=== PATIENT | female | born 1995 ===

== ENCOUNTER → 2019-04-27 | Outpatient (CLI) | payer MEDICAID ==
--- NOTE | 2019-04-27 17:08 | Diagnostic Imaging Report ---
INDICATION: Anatomic survey. TECHNIQUE: Multiple real-time grayscale images were obtained over the gravid uterus. COMPARISON: None FINDINGS: There is a single live intrauterine gestation in breech presentation. The cervix measures 4.2 cm with no evidence of funneling or endocervical fluid. The stomach is seen. The heart rate measures 143 BPM. The cord insertion is seen. The profile is seen. The upper extremities are seen. Bilateral feet are seen. Two umbilical arteries are demonstrated. The placenta is anterior with no evidence of previa. The lateral ventricles are normal in size. The cerebellum appears normal. The cisterna magna is normal in size. The spine is not well seen due to lie. A four-chamber heart is seen. The kidneys are seen. The maternal adnexa are not seen. The amniotic fluid appears subjectively normal. Biometrical measurements are as follows: Biparietal 4.54 cm, age 19 weeks 6 days. Head circumference 18.16 cm, age 20 weeks 4 days. Abdominal circumference 14.41 cm, age 19 weeks 6 days. Femur length 3.24 cm, age 20 weeks 1 days. Sonographic estimate age: 20 weeks 1 days. Sonographic estimated date of delivery: 09/13/2019. Estimated Weight: 324 gm (+/- 47 gm). LMP percentile: 17%. heart rate: 143 beats per minute. number: 1 of 1. IMPRESSION: 1. Single live intrauterine gestation measuring 20 weeks and 1 day, which is within range of the clinical dates of 20 weeks and 4 days. heart rate is normal. 2. Anatomic survey as given above. The spine is not well seen. Dictated by: Dictated on workstation # [id number]
== END ==
LOC: RAD 15:12
PROVIDERS: ATTEND Obstetrics & Gynecology
DX: Z36.89 Encounter for other specified antenatal screening (principal); Z3A.20 20 weeks gestation of pregnancy
CPT/HCPCS: 76805

== ENCOUNTER → 2019-05-23 | Outpatient (CLI) | payer MEDICAID ==
--- NOTE | 2019-05-23 18:18 | Diagnostic Imaging Report ---
INDICATION: Previous exam had limited anatomical survey. TECHNIQUE: Multiple real-time grayscale images were obtained over the gravid uterus. FINDINGS: Previously, the spine was suboptimally visualized and shown to be unremarkable. No pathological finding at the anatomical survey. The [place] viable IUP is in cephalic position. Amniotic fluid volume within normal limits. The placenta is anterior. There is no abruption or previa. Heart rate is 134 bpm. IMPRESSION: Follow-up exam shows normal appearance of the spine. No pathological finding identified. Fetus measuring 24 weeks 2 days. Biometrical measurements are as follows: Biparietal cm, age weeks days. Head circumference cm, age weeks days. Abdominal circumference cm, age weeks days. Femur length cm, age weeks days. Sonographic estimate age: weeks days. Sonographic estimated date of delivery: . Estimated Weight: gm (+/- gm). LMP percentile: %. heart rate: beats per minute. number: of . Dictated by: Dictated on workstation # [id number]
== END ==
LOC: RAD 13:05
PROVIDERS: ATTEND Obstetrics & Gynecology
DX: O35.1XX0 Maternal care for (suspected) chromosomal abnormality in fetus, not applicable or unspecified (principal); Z3A.23 23 weeks gestation of pregnancy; Z04.89 Encounter for examination and observation for other specified reasons
CPT/HCPCS: 76816

== ENCOUNTER → 2019-07-23 | Outpatient (CLI) | payer MEDICAID | LOC: RAD 15:12 | PROVIDERS: ATTEND Nurse Practitioner Women's Health | DX: Z34.90 Encounter for supervision of normal pregnancy, unspecified, unspecified trimester (principal); Z3A.00 Weeks of gestation of pregnancy not specified ==

== ENCOUNTER 2019-08-26 18:37 | Outpatient (CLI) | payer MEDICAID ==
[~2019-08-26] VITALS: Ht 165.1 cm; Wt 106.0 kg
--- NOTE | 2019-08-26 18:35 | NUR ---
Arrived to unit via wheelchair per s.o. with c/o contractions. wt obtained and to room 317. Gowned, unable to void at this time. To bed and oriented to room, call light and surroundings. bed controls explained. plan of care reviewed
[2019-08-26 18:48] VITALS: BP 124/77
[2019-08-26] MEDS ORDERED: VALA500T4 PO (18:51)
[2019-08-26] MEDS ORDERED: PREN-37 PO (18:51)
[2019-08-26 19:40] VITALS: BP 124/77
--- NOTE | 2019-08-26 20:24 | NUR ---
DR ANDRADE NOTIFIED OF PT ARRIVAL AND C/O'S. ORDER TO HAVE PT WALK IN HALLS AND RECHECK CERVIX IN 1 HOUR. PT INFORMED OF PLAN OF CARE.
--- NOTE | 2019-08-26 20:35 | NUR ---
PT AND S/O AMB IN HALLS.
--- NOTE | 2019-08-26 21:41 | NUR ---
DR ANDRADE NOTIFIED OF PT CONDITION. WILL D/C TO HOME.
[2019-08-26 21:50] VITALS: BP 125/73
[2019-08-26] MEDS ORDERED: ACETAMINOPHEN 500 MG TAB (TYLENOL) ONE (22:14)
[2019-08-26] MEDS ORDERED: ACETAMINOPHEN 500 MG TAB (TYLENOL) PO ONE (22:29)
--- NOTE | 2019-08-26 22:30 | NUR ---
PT D/C TO HOME ACCOMPANIED BY S/O.
--- NOTE | 2019-08-27 08:20 | Physician Query-Final Dx ---
ISIDRO MCGOVERN 08/27/19 0820: Clinic Account Progress/Dx Physician Query: Please give diagnosis Please include # weeks gestation Date of Service Aug 26, 2019 at 18:37 JOHN ANDRADE DO 08/27/19 2150: Clinic Account Progress/Dx Physician Query: Please give diagnosis DIAGNOSIS: Diagnosis Intrauterine at 37 6/7 weeks 2. Pelvic Pain 3. Irregular Contractions ISIDRO MCGOVERN Aug 27, 2019 08:20 JOHN ANDRADE DO Aug 27, 2019 21:50
== END 2019-08-26 22:30 | disposition home or self-care (01) ==
LOC: LDRP 18:37 → WSo 18:37
PROVIDERS: ATTEND Obstetrics & Gynecology
DX: O62.9 Abnormality of forces of labor, unspecified (principal); Z3A.37 37 weeks gestation of pregnancy
CPT/HCPCS: 99214

== ENCOUNTER 2019-08-27 20:46 | Inpatient (IN) | payer MEDICAID ==
[~2019-08-27] VITALS: Ht 165.1 cm; Wt 106.0 kg
[2019-08-27] VITALS (20 sets, daily range): BP systolic 107–133; BP diastolic 58–82
--- NOTE | 2019-08-27 20:45 | NUR ---
REYNALDO SCOTT presented to unit via W/C from ED, accompanied by SO, with c/o INPT LABOR. REYNALDO SCOTT weighed, gowned, voided, and to bed. EFHM and TOCO applied, VS taken. REYNALDO SCOTT oriented to bed controls, call light, TV, heat, and A/C controls.
[~2019-08-27 20:46] MED LIST: PREN-37 PO; VALA500T4 PO
--- NOTE | 2019-08-27 20:48 | NUR ---
Called Dr. Mendoza to see if she would like to take labor, no answer.
--- NOTE | 2019-08-27 20:49 | NUR ---
After SVE of 7 cm and pt co of urge to push Dr Seals called and enroute to unit.
--- NOTE | 2019-08-27 20:50 | NUR ---
Pt made inpt.
[2019-08-27] MEDS ORDERED: D5 LR IV SOLUTION 1,000 ML IV SCH (21:05)
[2019-08-27 21:14] LABS: BASOPHILS % (AUTO) 0 % (0-10); EOSINOPHILS % (AUTO) 0 % (0-10); HEMATOCRIT 40 % (35-52); HEMOGLOBIN 13.4 G/DL (11.5-16.0); LYMPHOCYTES # (AUTO) 1.6 X 10^3 (1.0-4.0); LYMPHOCYTES % (AUTO) 8 % (12-44); MEAN CORPUSCULAR HEMOGLOBIN 29 PG (25-34); MEAN CORPUSCULAR HGB CONC 34 G/DL (32-36); MEAN CORPUSCULAR VOLUME 88 FL (80-99); MEAN PLATELET VOLUME 9.4 FL (7.4-10.4); MONOCYTES # (AUTO) 0.7 X 10^3 (0.0-1.0); MONOCYTES % (AUTO) 4 % (0-12); NEUTROPHILS # (AUTO) 16.6 X 10^3 (1.8-7.8); NEUTROPHILS % (AUTO) 88 % (42-75); PLATELET COUNT 443 10^3/uL (130-400); RED CELL DISTRIBUTION WIDTH 14.3 % (10.0-14.5); WHITE BLOOD COUNT 18.9 10^3/uL (4.3-11.0)
[2019-08-27] MEDS ORDERED: MINERAL OIL CONCENTRATE 99.9% 15 ML UDC TOP PRN (21:15)
[2019-08-27] MEDS ORDERED: SUFENTA 0.6MCG/ML BUPIVA 0.125 100 ML ONE (21:18)
[2019-08-27] MEDS ORDERED: fentaNYL INJECTION 100 MCG/2 ML AMP ONE (21:36)
[2019-08-27] MEDS ORDERED: LIDOCAINE PF 2% 5 ML (XYLOCAINE) VIAL ONE (21:36)
[2019-08-27] MEDS ORDERED: BUPIVACAINE 0.25% 30 ML (SENSORCAINE) VIAL ONE (21:36)
[2019-08-27] MEDS ORDERED: CATHETER FLUSH 10 ML SYR IV SCH (22:00)
--- NOTE | 2019-08-27 22:01 | History & Physical-OB/GYN ---
History of Present Illness History of Present Illness Reason for visit/HPI Ms. Bach, 24 year old female, A1 at 38 weeks gestation presents to Labor & Delivery with increasingly worsening contractions and pressure Date of Admission Aug 27, 2019 at 20:50 Date Seen by a Provider: Aug 27, 2019 Time Seen by a Provider: 21:30 I consulted on this patient on 08/27/19 21:56 Attending Physician Darrell Allen DO Admitting Physician Ophelia Mendoza DO Consult Allergies and Home Medications Allergies Coded Allergies: No Known Drug Allergies (Unverified , 08/26/19) Home Medications Vit/Iron Fumarate/FA 1 Each Tablet, 1 EACH PO DAILY, (Reported) Valacyclovir HCl 500 Mg Tablet, 500 MG PO DAILY, (Reported) Patient Home Medication List Home Medication List Reviewed: Yes Past Rdntcka-Fhwcmy-Lrjshu Hx Patient Social History Number of Children: 0 Number of living children: 0 Alcohol Use: Denies Use Recreational Drug Use: No Smoking Status: Never a Smoker 2nd Hand Smoke Exposure: No Recent Foreign Travel: No Contact w/other who traveled: No Immunizations Up To Date Date of Influenza Vaccine: Jun 20, 2019 Seasonal Allergies Seasonal Allergies: No Surgeries No Respiratory No Cardiovascular No Neurological No Reproductive System : Yes Expected Date of Delivery: Sep 10, 2019 Hx : 2 Hx Para: 0 Hx Total # of Abortions (Spona: 1 Sexually Transmitted Disease: Yes (Genital Herpes) HIV/AIDS: No Gastrointestinal No Musculoskeletal No Endocrine History of Endocrine Disorders: No HEENT History of HEENT Disorders: No Cancer No Psychosocial History of Psychiatric Problem: No Integumentary History of Skin or Integumenta: No Review of Systems Constitutional: see HPI Physical Exam Physical Exam Vital Signs Capillary Refill : Labs Laboratory Tests 08/27/19 21:00: White Blood Count 18.9H, Red Blood Count 4.56, Hemoglobin 13.4, Hematocrit 40, Mean Corpuscular Volume 88, Mean Corpuscular Hemoglobin 29, Mean Corpuscular Hemoglobin Concent 34, Red Cell Distribution Width 14.3, Platelet Count 443H, Mean Platelet Volume 9.4, Neutrophils (%) (Auto) 88H, Lymphocytes (%) (Auto) 8L, Monocytes (%) (Auto) 4, Eosinophils (%) (Auto) 0, Basophils (%) (Auto) 0, Neutrophils # (Auto) 16.6H, Lymphocytes # (Auto) 1.6, Monocytes # (Auto) 0.7, Eosinophils # (Auto) 0.0, Basophils # (Auto) 0.0 General Appearance: No Apparent Distress, WD/WN Respiratory: Chest Non Tender, Lungs Clear, Normal Breath Sounds Cardiovascular: Regular Rate, Rhythm, No Murmur Abdominal: normal bowel sounds Vagina: WNL Cervix OS: open (7 cm) Uterus: Enlarged Assessment/Plan Assessment and Plan Assessment: Intrauterine at 38 weeks (SROM) Plan: Pain management. Expectant management Admission Diagnosis Admission Status: Inpatient Order (span 2 midnights) Reason for Inpatient Admission: Intrauterine at 38 weeks (active labor) DARRELL ALLEN DO Aug 27, 2019 22:01
[2019-08-27] MEDS ORDERED: LACTATED RINGERS 1,000 ML IV ONE ×2 (22:28)
[2019-08-27] MEDS ORDERED: EPIDURAL (SUFENTA 0.6MCG/ML BUPIVA 0.125%) 100 ML BAG EPI PRN (22:30)
[2019-08-27] MEDS ORDERED: ONDANSETRON 4 MG/2 ML (SDV) Z0FRAN IV PRN (22:30)
[2019-08-27] MEDS ORDERED: NALOXONE 0.4 MG/ML 1 ML (NARCAN) VIAL IV PRN (22:30)
[2019-08-27] MEDS ORDERED: LIDOCAINE 1% INJ 20 ML 20 ML VIAL ONE (23:24)
[2019-08-27] MEDS ORDERED: OXYTOCIN PRE-MIX DRIP 500 ML IV ONE (23:24)
[2019-08-28] VITALS (17 sets, daily range): BP systolic 96–126; BP diastolic 51–84
[2019-08-28] MEDS: OXYTOCIN PRE-MIX DRIP 500 ML IV SCH ×2 (01:32→02:03)
[2019-08-28] MEDS ORDERED: BENZOCAINE/MENTHOL (DERMOPLAST) 60 ML CAN TP PRN (01:45)
[2019-08-28] MEDS ORDERED: DIBUCAINE (NUPERCAINAL) 1% OINT 30 GM TOP PRN (01:45)
[2019-08-28] MEDS ORDERED: WITCH HAZEL(TUCKS) 40 EA JAR TOP PRN (01:45)
[2019-08-28] MEDS ORDERED: MEASLES,MUMPS,RUBELLA 1 EA INJ SQ ONE (01:45)
[2019-08-28] MEDS ORDERED: TETANUS,DIPTH,PERTUSS P/F (BOOSTRIX) 0.5 ML VIAL IM ONE (01:45)
--- NOTE | 2019-08-28 01:50 | OB Labor & Delivery Record ---
Vag Delivery Note Vag Delivery Note Date of Delivery: 08/28/19 Preoperative Diagnosis: Carol Bach is a (24 /Para 2 / 0, Gestational Age (wks)38with [the onset of labor (upon admission 7 cm)] Postoperative Diagnosis: Same Surgeon: JOHN ANDRADE Chute Tapper: [None] Anesthesia: [Epidural] Delivery Type: [Normal Spontaneous Vaginal Delivery Findings: [Healthy viable female ] Viable [female] , apgars [], weight [7 lb 3 oz] Lacerations: Superficial right labial, hemostatic, not repaired Intact placenta with 3 vessel cord. No nuchal cord, body cord or shoulder dystocia Estimated Blood Loss: [300] ml Complications: None Condition: Stable Description of Procedure: The patient is a 24 year old female who presented [with the onset of labor (7 cm upon admission)]. She was admitted and informed consent was obtained. Her labor course was unremarkable. She progressed to complete dilatation and began to push. She was then set up for delivery. The 's head was delivered atraumatically in the [DAISHA] position--orally and nasally suctioned immediately. The shoulders a nd remainder of the infant's body were then delivered without difficulty. . The cord was doubly clamped and cut and the was handed off to the pediatric staff where NRP protocol was followed. An intact placenta with 3-vessel cord delivered via Martell and there was found to be minimal bleeding.~ Vigorous fundal massage was performed and the fundus was found to be firm. IV oxytocin was given. Examination of the vagina and perineum revealed a [right labial] laceration hemostatic, not repaired. Sponge, instrument and needle counts were correct. Mom and baby were both in stable condition in the labor suite. Vitals - Labs Vital Signs - I&O Vital Signs Date Time Temp Pulse Resp B/P (MAP) Pulse Ox O2 Delivery O2 Flow Rate FiO2 08/28/19 01:00 36.8 83 119/73 (88) 98 Room Air 08/28/19 00:45 80 121/65 (83) 98 Room Air 08/28/19 00:30 84 115/65 (82) 98 Room Air 08/28/19 00:15 67 113/67 (82) 99 Room Air 08/28/19 00:00 76 118/68 (85) 98 Room Air 08/27/19 23:45 84 125/70 (88) 98 Room Air 08/27/19 23:30 74 125/68 (87) 98 Room Air 08/27/19 23:15 85 107/62 (77) 98 Room Air 08/27/19 23:00 78 109/63 (78) 99 Room Air 08/27/19 22:43 77 116/62 (80) 99 08/27/19 22:25 78 112/58 (76) 08/27/19 22:23 80 18 116/61 (79) 99 08/27/19 22:18 36.6 80 18 116/65 (82) 99 08/27/19 22:15 78 18 115/67 (83) 99 08/27/19 22:13 69 18 119/67 (84) 99 08/27/19 22:12 36.6 67 18 99 Room Air 08/27/19 22:09 82 18 122/73 (89) 99 08/27/19 22:08 36.6 67 18 99 Room Air 08/27/19 22:06 78 18 121/73 (89) 99 08/27/19 22:04 67 18 118/75 (89) 99 08/27/19 21:59 64 133/82 (99) 08/27/19 21:55 65 18 128/82 (97) 08/27/19 21:53 69 18 129/77 (94) 97 08/27/19 21:48 72 18 125/75 (92) 96 08/27/19 20:47 73 18 128/68 (88) I & O 08/28/19 07:00 Intake Total 1000 ml Balance 1000 ml Labs Laboratory Tests 08/27/19 21:00: White Blood Count 18.9H, Red Blood Count 4.56, Hemoglobin 13.4, Hematocrit 40, Mean Corpuscular Volume 88, Mean Corpuscular Hemoglobin 29, Mean Corpuscular Hemoglobin Concent 34, Red Cell Distribution Width 14.3, Platelet Count 443H, Mean Platelet Volume 9.4, Neutrophils (%) (Auto) 88H, Lymphocytes (%) (Auto) 8L, Monocytes (%) (Auto) 4, Eosinophils (%) (Auto) 0, Basophils (%) (Auto) 0, Neutrophils # (Auto) 16.6H, Lymphocytes # (Auto) 1.6, Monocytes # (Auto) 0.7, Eosinophils # (Auto) 0.0, Basophils # (Auto) 0.0 JOHN ANDRADE DO Aug 28, 2019 01:50
[2019-08-28] MEDS: IBUPROFEN 800 MG (MOTRIN) TAB PO SCH ×3 (02:03→15:34)
[2019-08-28] MEDS: ACETAMINOPHEN 500 MG TAB (TYLENOL) PO SCH ×4 (02:04→21:27)
[2019-08-28] MEDS ORDERED: CATHETER FLUSH 10 ML SYR IV SCH (06:00)
--- NOTE | 2019-08-28 06:27 | Progress Note ---
Standard Progress Note Progress Notes/Assess & Plan Date Seen by a Provider: Aug 28, 2019 Time Seen by a Provider: 06:15 Progress/Assessment & Plan Subjective: Ms. Bach is PPD#0 from a . She admits to feeling good--denies significant pain, bleeding or problems Objective: Vital signs stable Heart: Regular rate and rhythm without appreciable murmur Lungs: Clear to auscultation bilaterally with good respiratory effort Abdomen: Good bowel sounds, no rebound or guarding, fundus 5 cm below umbilicus Neurological: Alert and oriented in no apparent distress, very cooperative Assessment: PPD#0 Plan: Comfort care and pain management. Most likely to be discharge tomorrow. JOHN ANDRADE DO Aug 28, 2019 06:27
--- NOTE | 2019-08-28 07:20 | NUR ---
Called Dr. Mendoza to notify of pt. here & delivered overnight, report given, no new orders rc'd.
--- NOTE | 2019-08-28 07:30 | NUR ---
RESTING WHEN ENTERED ROOM WITH ROOM DARK. PT HAS NOT VOIDED SINCE DELIVERY. DENIES URGE TO VOID AT THIS TIME. INSTRUCTED TO PLACE CALL LIGHT ON WHEN READY TO GET UP TO THE BATHROOM. PT AGREES.
--- NOTE | 2019-08-28 08:15 | NUR ---
UP TO THE BATHROOM. LARGE VOID. PERICARE WITH PAD/UNDERWEAR APPLIED. VAGINAL FLOW LT/MOD RUBRA. FF U/1.
--- NOTE | 2019-08-28 08:45 | NUR ---
A.M. ASSESSMENT COMPLETED. VSS. SET UP SHOWER. S.O. AT BEDSIDE.
[2019-08-28] MEDS: PRENATAL VITAMIN 1 EA TAB PO SCH (08:50)
[2019-08-28] MEDS: DOCUSATE SODIUM 100 MG (COLACE) CAP PO SCH ×2 (08:51→21:26)
--- NOTE | 2019-08-28 12:00 | NUR ---
VSS. CONTINUES TO OFFER NO COMPLAINTS. CARING FOR IN ROOM. ASSISTANCE BY STAFF WITH NEEDED. SKIN TO SKIN AT THIS TIME.
--- NOTE | 2019-08-28 13:20 | NUR ---
MOM 365 TAKING PICTURES. PT DENIES ANY NEED FOR PAIN MEDS.
--- NOTE | 2019-08-28 14:00 | NUR ---
REPORT REC'D FROM Roxi CORBETT RN. CARES ASSUMED AT THIS TIME.
--- NOTE | 2019-08-28 14:05 | NUR ---
PT STATES INFANT FED ON LEFT BREAST FOR 3 MINUTES AND RIGHT FOR 9.
--- NOTE | 2019-08-28 14:55 | Anesthesia-Regional Post-Op ---
Regional Patient Condition Mental Status: Alert, Oriented x3 Circulation: Same as Pre-Op Headache: Absent Sensation: Full Recovery Motor Block: Absent Post Op Complications Complications None Follow Up Care/Instructions Patient Instructions None needed. Anesthesia/Patient Condition Patient is doing well, no complaints, stable vital signs, no apparent adverse anesthesia problems. SRIRAM ORTIZ DO Aug 28, 2019 14:55
--- NOTE | 2019-08-28 15:30 | NUR ---
PT JUST GETTING OUT OF SHOWER. SCHEDULED MOTRIN AND TYLENOL GIVEN. VS TAKEN. PT DENIES NEEDS OR CONCERNS AT THIS TIME.
--- NOTE | 2019-08-28 20:30 | NUR ---
Pt. w/assist from tala Valdovinos RN, will do assessment & VS when done. Denies pain or needs @ this time.
[2019-08-29 01:40] VITALS: BP 106/63
[2019-08-29] MEDS: IBUPROFEN 800 MG (MOTRIN) TAB PO SCH ×4 (01:40→23:44)
[2019-08-29] MEDS: ACETAMINOPHEN 500 MG TAB (TYLENOL) PO SCH ×4 (06:35→23:50)
[2019-08-29 06:39] LABS: BASOPHILS % (AUTO) 0 % (0-10); EOSINOPHILS # (AUTO) 0.2 10^3/uL (0.0-0.3); EOSINOPHILS % (AUTO) 2 % (0-10); HEMATOCRIT 34 % (35-52); HEMOGLOBIN 10.9 G/DL (11.5-16.0); LYMPHOCYTES % (AUTO) 29 % (12-44); MEAN CORPUSCULAR HEMOGLOBIN 29 PG (25-34); MEAN CORPUSCULAR HGB CONC 33 G/DL (32-36); MEAN CORPUSCULAR VOLUME 90 FL (80-99); MEAN PLATELET VOLUME 9.3 FL (7.4-10.4); MONOCYTES # (AUTO) 0.7 X 10^3 (0.0-1.0); MONOCYTES % (AUTO) 7 % (0-12); NEUTROPHILS # (AUTO) 6.5 X 10^3 (1.8-7.8); NEUTROPHILS % (AUTO) 62 % (42-75); PLATELET COUNT 366 10^3/uL (130-400); RED CELL DISTRIBUTION WIDTH 14.8 % (10.0-14.5); WHITE BLOOD COUNT 10.4 10^3/uL (4.3-11.0)
[2019-08-29] MEDS ORDERED: IBUP-1773 PO (08:36)
[2019-08-29] MEDS ORDERED: ACET-93 PO (08:36)
--- NOTE | 2019-08-29 08:37 | Discharge Inst-Women's Service ---
Discharge Inst-Women's Serv Depart Medication/Instructions New, Converted or Re-Newed RX: RX on Chart Final Diagnosis vaginal delivery Problems Reviewed?: Yes (2 weeks with Nita; 6 weeks with Reji) Consults/Follow Up Additional Follow Up: Yes Activity Activity: Activity as Tolerated Driving Instructions: You May Drive NO SMOKING: NO SMOKING Nothing Inside Vagina: No Douching, No [place], No Tampons Diet Discharge Diet: No Restrictions Symptoms to Report to : Swelling Increased, Bleeding Excessive, Pain Increased, Fever Over 101 Degrees F, Vaginal Bleeding Increase, Cramps in Feet or Legs, Vaginal Discharge Foul For Any Problems or Questions: Contact Your Physician ELICEO BLACKBURN DO Aug 29, 2019 08:37
[2019-08-29 09:00] VITALS: BP 111/56
--- NOTE | 2019-08-29 09:00 | NUR ---
pt resting in bed. skin color pale pink tones. resp unlabored with breath sounds CTA. HRRR. abd soft with positive bowel sounds. FFU/2 perineum intact with scant vag flow. pt moves all extremities actively. homans sign negative. pt nursing with assistance of software sales consultant this morning. denies need for pain medication rates pain level zero
--- NOTE | 2019-08-29 10:00 | NUR ---
pt rates pain level at zero. in room. no changes in status
[2019-08-29] MEDS: DOCUSATE SODIUM 100 MG (COLACE) CAP PO SCH ×2 (10:07→20:57)
[2019-08-29] MEDS: PRENATAL VITAMIN 1 EA TAB PO SCH (10:17)
--- NOTE | 2019-08-29 13:00 | NUR ---
mother feeding . SNS used.
[2019-08-29 14:00] VITALS: BP 110/56
--- NOTE | 2019-08-29 14:30 | NUR ---
reviewed with mother how feeding went this afternoon. did not latch and actively nurse at breast. mother using pump to stimulate production. SNS used and fed with encouragement. mother wanting to stay until tomorrow to get assistance with feeding.
--- NOTE | 2019-08-29 16:00 | NUR ---
dr whitfield notified mother planning on staying until tomorrow for assistance with feeding infant.
--- NOTE | 2019-08-29 17:35 | NUR ---
ROUTINE TYLENOL AND MOTRIN GIVEN. CARING FOR IN ROOM. S.O. AT BEDSIDE. OFFERS NO COMPLAINTS.
[2019-08-29 20:57] VITALS: BP 94/58
[2019-08-30 02:55] VITALS: BP 105/60
[2019-08-30] MEDS: ACETAMINOPHEN 500 MG TAB (TYLENOL) PO SCH (06:00)
[2019-08-30 10:20] VITALS: BP 106/62
[2019-08-30] MEDS: IBUPROFEN 800 MG (MOTRIN) TAB PO SCH (10:20)
[2019-08-30] MEDS: PRENATAL VITAMIN 1 EA TAB PO SCH (10:20)
[2019-08-30] MEDS: DOCUSATE SODIUM 100 MG (COLACE) CAP PO SCH (10:20)
--- NOTE | 2019-08-30 10:20 | NUR ---
initial shift assessment completed, see interventions for further. POC reviewed, states understanding.
--- NOTE | 2019-08-30 11:37 | NUR ---
dismissal instructions given, verbalizes understanding. reviewed dismissal Rx's and PP appointment. signature page signed, placed on chart.
--- NOTE | 2019-08-30 11:50 | NUR ---
pt ambulated to private vehicle with staff, infant and s/o @ side. infant secured in rear facing car seat. pt stable with no sx's of distress noted.
== END 2019-08-30 11:50 | disposition home or self-care (01) | DRG 807 ==
LOC: WSo 20:46 → LDRP 20:50
PROVIDERS: ADMIT Obstetrics & Gynecology; ATTEND Obstetrics & Gynecology
PROC: 10E0XZZ Delivery of Products of Conception, External Approach (ICD-10-PCS; principal; 2019-08-28)
DX: O98.32 Other infections with a predominantly sexual mode of transmission complicating childbirth (principal); A60.09 Herpesviral infection of other urogenital tract; O70.0 First degree perineal laceration during delivery; Z3A.38 38 weeks gestation of pregnancy; Z37.0 Single live birth; Z79.899 Other long term (current) drug therapy
CPT/HCPCS: 36415; 85025; 86850; 86900; 86901; 99212